=== PATIENT | female | born 1965 ===

== ENCOUNTER 2019-02-17 01:09 | Day surgery (SDC) | payer BC ==
[~2019-02-17] VITALS: Ht 162.6 cm; Wt 53.1 kg
[2019-02-17] VITALS (7 sets, daily range): BP systolic 121–137; BP diastolic 56–84
[~2019-02-17 01:09] MED LIST: MULT-1335 PO
[2019-02-17] MEDS ORDERED: fentaNYL CITR 100 MCG/2 ML AMP ONE (08:07)
[2019-02-17] MEDS ORDERED: METOCLOPRAMIDE 10 MG/2 ML SDV ONE (08:07)
[2019-02-17] MEDS ORDERED: PROPOFOL EMUL(*) 10MG/ML 20 ML 20 ML ONE (08:07)
[2019-02-17] MEDS ORDERED: ONDANSETRON 4 MG/2 ML VIAL ONE (08:07)
[2019-02-17] MEDS ORDERED: DEXAMETHASONE SOD 4 MG/ML VIAL ONE (08:07)
[2019-02-17] MEDS ORDERED: LIDOCAINE MPF 1% 5 ML VIAL ONE (08:07)
[2019-02-17] MEDS ORDERED: ROPIVACAINE 0.5% 20 ML VIAL ONE (08:18)
[2019-02-17] MEDS ORDERED: ceFAZolin(*) 1 GM VIAL 1 GM in NS(*) 0.9% 100 ML MINI-BAG 100 ML IVPB ONE (09:00)
[2019-02-17] MEDS ORDERED: MIDAZOLAM 2 MG/2 ML VIAL IVP PRN (09:00)
[2019-02-17] MEDS ORDERED: LIDOCAINE/SOD BICARB 8.4% SYR ID ONE (09:00)
[2019-02-17] MEDS ORDERED: FAMOTIDINE 20 MG TAB PO ONE (09:00)
[2019-02-17] MEDS ORDERED: NORMOSOL R SOLN(*) 1000 ML BAG 1,000 ML IV PRN (09:00)
[2019-02-17] MEDS ORDERED: BUPIV/EPI 0.25% 1:200,000 50ML INFIL ONE (09:52)
[2019-02-17] MEDS ORDERED: ROPIVACAINE 0.2% 20 ML VIAL ONE (09:52)
[2019-02-17] MEDS ORDERED: NEOMYCIN/POLYMYX/BACITR 30 GM TP ONE (09:52)
[2019-02-17] MEDS ORDERED: ePHEDrine 25 MG/5 ML DISP.SYR IVP ONE (10:17)
[2019-02-17] MEDS ORDERED: OXYC5TAB38 PO (12:01)
--- NOTE | 2019-02-17 12:22 | OPERATIVE REPORT 1 ---
EVENT DATE: February 17, 2019 SURGEON: Sj Baron MD ANESTHESIOLOGIST: Simone Fernández MD ANESTHESIA: Scalene block and general. DESIGN CENTER CONSULTANT: LARISSA Hung, CREDENTIALER PREOPERATIVE DIAGNOSIS Left shoulder subacromial impingement with acromioclavicular joint degenerative joint disease, subacromial bursitis, and SLAP tear. POSTOPERATIVE DIAGNOSIS Left shoulder subacromial impingement with acromioclavicular joint degenerative joint disease, subacromial bursitis, and SLAP tear with apparent adhesive capsulitis either secondary or primary. PROCEDURE PERFORMED 1. Left shoulder arthroscopy with limited debridement (63569). 2. Subacromial decompression (18749). 3. Lateral clavicle excision (20592) with biceps tenotomy and open tenodesis (97154). Preceded by shoulder manipulation under anesthesia (09898). ESTIMATED BLOOD LOSS Minimal. IV FLUIDS 1700 mL. SPECIMENS None. COMPLICATIONS None. TOURNIQUET TIME None. IMPLANTS USED Biceps button from [employer]. DESCRIPTION OF PROCEDURE The patient was brought into the operating room and placed on the OR table in the supine position. She was given a Scalene block under ultrasound guidance. Subsequently, she was given a general anesthetic and placed in the beach-chair position. The Sudhakar shoulder wolf was used for retraction and positioning. We marked the axillary fold in case we needed to do a biceps tenodesis, having already prepped and draped the shoulder. Injections were used to ryan the arthroscopic portals and to decrease bleeding epinephrine was used. We started with the posterior visualization portal. It was actually a bit more challenging than average to get into the joint which was atypical. She was quite thin and the anatomy was easily palpable, but it felt like her shoulder was very stiff. I was able to get into the joint, but even once in, moving the camera around was extremely difficult because it was so tight, so I removed the camera and tested her range here under anesthesia. We were only able to get her up to about 90- degrees and after that she was adhesed. I gave some traction and applied force and there was a loud report as the capsule tore and then her shoulder moved quite smoothly. Manipulative exercises both crossed-arm adduction and rotation to insure that we had full release and then went back to the scope and this time the shoulder allowed for the camera to enter much more easily and move about. We obtained anterior access and examined the shoulder. The axillary recess was free of loose bodies. There was some superior labral tearing that was significant and would need to be addressed. I did not see evidence of a periarticular cyst, although these can sometimes be challenging to see. The articular surfaces of the glenoid and humerus still looked good. The rotator cuff was in good condition. The posterior labrum was torn superiorly, but it was primarily degenerative fray tear. I used a shaver to debride this tissue as well as the undersurface of the SLAP. I also removed the insertion of the long head of the biceps and then used a shaver to clean up this debris and remove the debris from the biceps release which was done with a Duckbill biter. I then used a surface device to heat this tissue and smooth it all out while keeping flow going through the shoulder to minimize risk of chondrolysis. After completing the debridement, we went ahead and removed the scope and went into the subacromial space where we noted she had substantial subacromial bursitis that actually made visualization difficult at first. We started from a central position with the shaver and began to remove bursa in a globular fashion extending out to the bone and then we went and switched to the surface device and did a subperiosteal exposure of the acromion where she did have a significant down turn anteriorly as well as medially and then also a fairly large lip off the lateral clavicle. Once this was fully exposed, we used a bur to affect a subacromial decompression, primarily anteriorly with a little bit medially and then also took off the undersurface of the clavicle. We then switched the portal up to the anterior portal and came in under the clavicle and completed the subacromial decompression with the bur and the radiofrequency device interchangeably. Finally, we went back to the lateral portal for the instrumentation and completed a full bursectomy down to the rotator cuff tissue. There was no evidence of a bursal side rotator cuff tear, although it was somewhat frayed. Finally, we removed the arthroscope and made the small incision in the axillary fold. We identified the pectoralis and elevated it. I felt the humeral shaft and pulled the cut tendon out into the wound. We did a whipstitch using the [employer] FiberWire and cut off the excess tendon and measured it. Surprisingly, it only measured about 4 mm to 4.5 mm. We placed the [place] Tip Guidewire bicortical and then drilled unicortical with a 4.5, passed the biceps button after loading it in the usual fashion and then secured the tendon by pulling it down inside the drill hole. It was sewn up through itself and then tied down. The excess suture was removed as had been the excess tendon. The wound was irrigated. 3-0 Vicryl was used for closure, followed by 4-0 Monocryl and then Dermabond. She was awakened and transferred to the recovery room in stable condition where we would start immediate range of motion exercises. HELLEN
--- NOTE | 2019-02-17 13:47 | NUR ---
1315 PT ARRIVED TO [place] AND WANTED TO GET UP TO VOID ALMOST IMMEDIATELY, ORTHOSTATICS DONE, STABLE, PT STEADY ON FEET, BUT FEELS WEAK, REQUESTED STAND BY WHILE IN RESTROOM. VOIDED WITHOUT DIFFICULTY, BACK TO BED. 1330 ASSISTED PT IN DRESSING, OPERATIVE ARM SUPPORTED AT ALL TIMES. EDUCATED ON DRESSING/UNDRESSING AFFECTED ARM FIRST. PT FEELING TOO WARM, LAID BACK IN BED. LEFT TO REST, RECONNECTED TO MONITOR.
--- NOTE | 2019-02-17 14:00 | NUR ---
1355 PT VERY SLOWLY TRYING CRACKERS, WATER, AND JELLO 1400 AT BEDSIDE, VSS 1405 WALKED TO ER ADMITTING
--- NOTE | 2019-02-17 14:59 | NUR ---
1415 TRIED TO FIND BIN WORKER FOR PT'S DYING PHONE, UNSUCCESSFUL, NOT BACK IN WR YET 1430 CHECKED WR AGAIN, NO , VSS, PT TOLERATING SMALL SIPS OF WATER AND CRACKERS STILL, NO PAIN, NO NAUSEA 1500 VSS, SATTING WELL ON RA
--- NOTE | 2019-02-17 15:43 | NUR ---
1530 PT'S BACK IN ROOM, NEEDS TO RETURN TO URGENT CARE FOR RESULTS, DISCUSSED OPTIONS OF LEAVING PT HERE WHILE HE FOLLOWS UP AND PICKS UP PAIN MEDS, LEFT PT AND TO DISCUSS. ALSO DISCUSSED STAYING THE NIGHT AT THE [facility]. PT AND ARE INSISTENT THAT THEY FEEL SAFE DRIVING TO URGENT CARE. PT UNDERSTANDS SHE CAN NOT DRIVE IN THE EVENT THAT URGENT CARE WILL NOT ALLOW HER TO DRIVE. ALSO DISCUSSED RISKS OF DRIVING WITH LOW O2 SATS. BOTH PT AND ACKNOWLEDGED AND AGREED TO MAKE CONSERVATIVE DECISION REGARDING TRIP HOME ONCE GETTING RESULTS FROM URGENT CARE. 1535 D/C INSTRUCTIONS COVERED, ALL QUESTIONS ANSWERED, PT UP TO VOID INDEPENDENTLY. IV OUT, PRESSURE DRESSING APPLIED 1538 PT OUT TO CAR WITH ON FOOT, STEADY, DENIES LIGHTHEADEDNESS, SELF TRANSFERRED INTO CAR WITHOUT INCIDENT, ALL BELONGINGS WITH PT. [facility] INFO PROVIDED
--- NOTE | 2019-02-20 16:17 | NUR ---
02/20/2019 Received call from [facility] asking for pt Physical therapy orders from pt visit on 02/17/2019. RNs on staff recalled faxing and receiving confirmation that it was sent to both [facility] and [facility]. Called [facility] medical records and [facility] medical records, No DrSanjeev Orders found. This RN called Dr. Baron office and left a message pertaining to the issue at hand. [facility] employee asking for information Luis and his fax number [phone] Incident report filled out. Awaiting for return call from [facility] office.
== END 2019-02-17 13:15 | disposition home or self-care (01) ==
LOC: OR 01:09
PROVIDERS: ATTEND Orthopaedic Surgery Hand Surgery
DX: M19.012 Primary osteoarthritis, left shoulder (principal); M75.42 Impingement syndrome of left shoulder; S43.432A Superior glenoid labrum lesion of left shoulder, initial encounter
CPT/HCPCS: 23430; 29822; C1713; J0690; J1100; J2001; J2250; J2405; J2704; J2765; J2795; J3010; L3670